=== PATIENT | female | born 1955 | race Caucasian/White ===

== ENCOUNTER 2017-10-31 14:02 | Outpatient (CLI) | payer BC | END 2017-10-31 14:03 | disposition home or self-care (01) | LOC: CTENTCT 14:02 | PROVIDERS: ATTEND Otolaryngology Plastic Surgery within the Head & Neck | DX: J32.9 Chronic sinusitis, unspecified (principal) | CPT/HCPCS: 70486; 87070; 87077; 87186; 87205 ==

== ENCOUNTER 2019-07-31 10:10 | Outpatient (CLI) | payer BC ==
--- NOTE | 2019-07-31 11:21 | RAD ---
LEFT ANKLE THREE VIEWS: HISTORY: Ankle pain and swelling. FINDINGS: There are some mild arthritic changes of the ankle. There is some spurring along the fibula and tip o f the medial malleolus. No significant joint space narrowing. Prominent calcaneal spurs are seen. The bones are demineralized. 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 No acute bony process. POS: [facility] [place]
--- NOTE | 2019-07-31 11:21 | RAD ---
LEFT HEEL TWO VIEWS: HISTORY: Foot pain and edema. FINDINGS: Prominent calcaneal spurs are present. The bones appear slightly demineralized. No acute erosive proc ess seen. IMPRESSION: Calcaneal spurs and generalized bony demineralization. POS: [facility]
== END 2019-07-31 10:11 | disposition home or self-care (01) ==
LOC: BICRAD 10:10
PROVIDERS: ATTEND Podiatrist
DX: M25.572 Pain in left ankle and joints of left foot (principal); R60.0 Localized edema; M77.32 Calcaneal spur, left foot; M19.072 Primary osteoarthritis, left ankle and foot

== ENCOUNTER 2019-08-17 09:38 | Outpatient (CLI) | payer BC ==
--- NOTE | 2019-08-17 11:07 | BD ---
DEXA BONE DENSITOMETRY: (Dual energy x-ray absorptiometry) DATE: 08/17/2019 HISTORY: 64-year old white female for age-related, post-menopausal, osteoporosis screening. weight: 172 lbs height: 66 in. age of menopause: 42 COMPARISON: None available. TECHNIQUE: Lumbar spine was imaged. Because of metallic hardware in the bilateral hips, the forearm was imaged instead of the hip. FINDINGS: The bone mineral density (BMD) is given in grams per square centimeter (g/cm2): LUMBAR SPINE: BMD (g/cm^2) T score Z score L1: 0.935 -0.5 0.9 L2: 0.938 -0.8 0.7 L3: 0.979 -1.0 0.7 L4: 0.990 -0.6 1.0 Total: 0.961 -0.8 0.8 Forearm: BMD (g/cm^2) T score Z score UD: 0.364 -1.4 -0.3 MID 0.394 -3.9 -2.5 Total: 0.397 -3.4 -2.0 IMPRESSION: 1.) The mean bone mineral density of the lumbar spine is normal. Fracture risk is not increased. 2) The bone mineral density of the forearm is osteoporotic. Fracture risk is high.
== END 2019-08-17 09:39 | disposition home or self-care (01) ==
LOC: BICMAMMO 09:38
PROVIDERS: ATTEND Obstetrics & Gynecology
DX: Z13.820 Encounter for screening for osteoporosis (principal); M81.0 Age-related osteoporosis without current pathological fracture
CPT/HCPCS: 77080

== ENCOUNTER 2019-10-11 20:30 | Outpatient (CLI) | payer BC | END 2019-10-11 20:31 | disposition home or self-care (01) | LOC: SLEEPLAB 20:30 | PROVIDERS: ATTEND Internal Medicine Critical Care Medicine | DX: G47.33 Obstructive sleep apnea (adult) (pediatric) (principal); G25.81 Restless legs syndrome; K21.9 Gastro-esophageal reflux disease without esophagitis; R53.83 Other fatigue; G47.11 Idiopathic hypersomnia with long sleep time | CPT/HCPCS: 95810 ==

== ENCOUNTER 2022-09-29 12:35 | Outpatient (CLI) | payer BC, MEDICARE | END 2022-09-29 12:36 | disposition home or self-care (01) | LOC: TBSIIMAG 12:35 | PROVIDERS: ATTEND Neurological Surgery | DX: M43.16 Spondylolisthesis, lumbar region (principal); M47.898 Other spondylosis, sacral and sacrococcygeal region; M47.896 Other spondylosis, lumbar region | CPT/HCPCS: 72100 ==

== ENCOUNTER 2022-11-16 13:43 | Outpatient (CLI) | payer MEDICARE, BC | END 2022-11-16 13:44 | disposition home or self-care (01) | LOC: TBSIIMAG 13:43 | PROVIDERS: ATTEND Physician Assistant | DX: M48.062 Spinal stenosis, lumbar region with neurogenic claudication (principal); M47.816 Spondylosis without myelopathy or radiculopathy, lumbar region; Z98.890 Other specified postprocedural states | CPT/HCPCS: 72100 ==

== ENCOUNTER 2023-01-04 14:51 | Outpatient (CLI) | payer MEDICARE, BC | END 2023-01-04 14:52 | disposition home or self-care (01) | LOC: TBSIIMAG 14:51 | PROVIDERS: ATTEND Neurological Surgery | DX: M48.062 Spinal stenosis, lumbar region with neurogenic claudication (principal); M47.816 Spondylosis without myelopathy or radiculopathy, lumbar region | CPT/HCPCS: 72100 ==

== ENCOUNTER 2023-02-01 14:04 | Outpatient (CLI) | payer MEDICARE, BC ==
[~2023-02-01 14:04] MED LIST: Magnevist 469MG/ML 20 ML VIAL ONE
== END 2023-02-01 14:05 | disposition home or self-care (01) ==
LOC: TBSIIMAG 14:04
PROVIDERS: ATTEND Neurological Surgery
DX: M48.062 Spinal stenosis, lumbar region with neurogenic claudication (principal); Z98.890 Other specified postprocedural states; M47.816 Spondylosis without myelopathy or radiculopathy, lumbar region
CPT/HCPCS: 72158; 82565

== ENCOUNTER 2024-08-28 14:56 | Outpatient (CLI) | payer MEDICARE | END 2024-08-28 14:57 | disposition home or self-care (01) | LOC: BICMAMMO 14:56 | PROVIDERS: ATTEND Internal Medicine | DX: Z12.31 Encounter for screening mammogram for malignant neoplasm of breast (principal) | CPT/HCPCS: 77063; 77067 ==